=== PATIENT | male | born 1940 | race Caucasian/White ===

== ENCOUNTER → 2019-10-12 | Day surgery (SDC) | payer MEDICARE, OTHER ==
--- NOTE | 2019-10-11 11:56 | Pre Op History & Physical ---
CHIEF COMPLAINT: Right sudden sensorineural hearing loss. HISTORY OF PRESENT ILLNESS: This 78 years old male since June of 2019 has been having decreased hearing. The patient denies any change in tinnitus. He has no vertigo. The patient has a history of upper respiratory tract infection when this first started, the hearing never returned. The patient has been treated with antibiotics with no improvement of the condition. MRI of the skull base showed the patient has negative IAC with increased intensity of the mastoid cavity on both sides suggestive of chronic bilateral mastoiditis. Audiogram that was done showed the patient has a speech discrimination of 88% on the right side, 68% on the left side, so moderate sensorineural hearing loss. The right side showed [id number] mid-to-high frequency sensorineural hearing loss. REVIEW OF SYSTEMS: System review showed no recent cardiovascular, respiratory, or GI problem. PAST MEDICAL HISTORY: The patient has a history of IA and coronary artery disease. PAST SURGICAL HISTORY: The patient has cardiac stent in his heart in 2011, with knee surgery in 2009 and back surgery recently in 2019. ALLERGIES: HE IS ALLERGIC TO PENICILLIN. MEDICATIONS: He is on clopidogrel, atorvastatin, aspirin, , multivitamins, Flonase, and finasteride. SOCIAL HISTORY: The patient stopped smoking about 50 years ago, was a nondrinker. FAMILY HISTORY: Noncontributory. PHYSICAL EXAMINATION: VITAL SIGNS: Within normal limits. HEENT: Ears exam showed membrane on the right ear, with normal TM on the left. Nasal exam showed no obvious abnormality. Oropharynx and oral cavity showed no obvious abnormality. NECK: Showed no lymph node or thyroid palpable. CHEST: Showed good air entry bilaterally. CARDIOVASCULAR: Showed S1, S2. No murmur noted. Mr. Marie has right sudden sensorineural hearing loss since June of 2019, which is resistant to conservative therapy, but the suggested treatment is examination under anesthesia, possible myringotomy and tubes in the right ear with Decadron instillation in the right ear and other necessary procedure. Complication of procedure includes, but not limited to bleeding, infection, TM perforation, persistent drainage from the ear, hearing loss, recurrence or persistence of the ear problem. Alternatives will be continue observation, continue antibiotic therapy, topical nasal steroid therapy, and systemic steroid therapy. The patient has elected to undergo the surgical procedure. MD GRACE Auguste/ELISABETH /[id number]
[~2019-10-12] MED LIST: ASPIR 8181 MG PO; ATORVASTATIN CA20 MG PO; CHERRY FRUIT EXTRACT PO; CLARITIN-D 241 EACH PO; DEXAMETHASONE PHOS 24 MG/ML 10ML VIAL ONE; FINASTERIDE5 MG PO; METOPROLOL SUCC25 MG PO; MULTI-VITAMIN1 EACH PO; ONDANSETRON HCL INJ 2MG/ML 2ML 2 MG/ML VIAL ONE; PLAVIX75 MG PO; PROPOFOL IV EMULSION 10 MG/ML 20 ML VIAL ONE; PROSTATE HEALT1 EAC1 PO; SEVOFLURANE INHAL SOLN 250 ML PEN BTL ONE
--- NOTE | 2019-10-12 08:32 | Diagnostic Imaging Report ---
EXAM: CHEST 2 VIEWS DATE: 10/12/2019 8:03 AM INDICATION: Preoperative evaluation COMPARISON: None FINDINGS: The trachea is midline. The lungs are symmetrically expanded without evidence for large focal consolidation, pneumothorax, or significant pleural effusion. The cardiomediastinal silhouette and pulmonary vasculature are within normal limits. Atherosclerotic calcifications noted within the arch. Degenerative changes noted of the visualized spine. No acute osseous abnormality is identified. The surrounding soft tissues are unremarkable. IMPRESSION: No acute cardiopulmonary process identified. Signed by: Dr. Ti Mas MD on 10/12/2019 8:29 AM
[2019-10-12 08:41] LABS: BASOPHILS # (AUTO) 0.1 (0.0-0.1); BASOPHILS % 0.6 % (0.0-1.0); EOSINOPHILS # (AUTO) 0.1 (0.0-0.4); HEMATOCRIT 47.4 % (38.2-49.6); HEMOGLOBIN 15.6 g/dL (14.0-18.0); LYMPHOCYTES # (AUTO) 2.3 (1.0-3.2); LYMPHOCYTES % 27.9 % (18.0-39.1); MEAN CORPUSCULAR HEMOGLOBIN 32.3 pg (28-32); MEAN CORPUSCULAR HGB CONC 32.9 g/dL (31-35); MEAN CORPUSCULAR VOLUME 98.1 fL (81-99); MONOCYTES # (AUTO) 0.6 (0.2-0.8); MONOCYTES % 7.5 % (4.4-11.3); NEUTROPHILS # (AUTO) 5.3 (2.1-6.9); NEUTROPHILS % 62.9 % (38.7-80.0); PLATELET COUNT 234 x10e3/uL (140-360); RED BLOOD COUNT 4.83 x10e6/uL (4.3-5.7); RED CELL DISTRIBUTION WIDTH 11.9 % (11.7-14.4)
[2019-10-12 10:15] VITALS: BP 157/85
--- NOTE | 2019-10-12 16:47 | Operative Report ---
DATE OF PROCEDURE: 10/12/2019 SURGEON: Trevon Farooq MD CHIEF COMPLAINT: Right sudden sensorineural hearing loss. POSTOPERATIVE DIAGNOSES: Right sudden sensorineural hearing loss with small tympanic membrane perforation on the right ear noted with chronic otitis media in the right ear. OPERATIVE PROCEDURES: Right myringotomy tube with Decadron instillation to the right ear and examination under anesthesia on the left. ANESTHESIA: [facility]esthesiology Group. INDICATIONS: This 78-year-old male has history of right-sided hearing loss over the past few weeks, this was sudden in onset. The patient has a history of sensorineural hearing loss, but has gotten worse especially for the right ear. On examination, he was noted to have a tympanic membrane on the right in anterior-inferior quadrant with normal TM on the left. MRI of the skull base showed negative IAC, but chronic otitis media on both sides. The patient has hearing aids, but has not been working as well recently. Audiogram show asymmetric hearing loss, more so on the right side. It was decided that right myringotomy and tubes, and Decadron installation on the right ear and examination under anesthesia, and other necessary procedure will be beneficial for him. DESCRIPTION OF PROCEDURE: The patient was taken to the operating room, put under general anesthesia, the LMA airway created. The right ear was examined. The ear canal was debrided. Examination of the a small TM perforation was noted, in the middle of it was pinhole. The myringotomy was done to enlarge the pinhole and an Zaldivar grommet tube was inserted. Decadron 24 mg 4 mL. 1 mL was instilled into the middle ear cleft on the right side. The left ear was examined. The ear canal was debrided. The myringotomy was done in the anterior-superior. No TM perforation was noted. The TM was not disturbed. The patient tolerated the above procedure well with minimal blood loss. He was able to be transferred to recovery room in stable condition. Trevon Farooq MD DKH/MODL /[id number]
== END | disposition home or self-care (01) ==
LOC: OR 07:35
PROVIDERS: ATTEND Otolaryngology Otolaryngology/Facial Plastic Surgery
DX: H72.91 Unspecified perforation of tympanic membrane, right ear (principal); H66.91 Otitis media, unspecified, right ear; H91.21 Sudden idiopathic hearing loss, right ear; I25.10 Atherosclerotic heart disease of native coronary artery without angina pectoris; K21.9 Gastro-esophageal reflux disease without esophagitis; N20.0 Calculus of kidney; I10 Essential (primary) hypertension; I25.2 Old myocardial infarction; I48.91 Unspecified atrial fibrillation; Z88.0 Allergy status to penicillin; Z79.02 Long term (current) use of antithrombotics/antiplatelets; Z79.82 Long term (current) use of aspirin; Z95.5 Presence of coronary angioplasty implant and graft
CPT/HCPCS: 36415; 69420; 69436; 71046; 85025; 93005; J2405; J2704